=== PATIENT | female | born 1965 | race Caucasian/White ===

== ENCOUNTER 2019-08-18 09:25 | Emergency (ER) | payer OTHER, SELFPAY ==
[2019-08-18 09:53] VITALS: BP 131/81; PULSE 59; RESP 18; TEMP 36.4; O2SAT 95; BMI 25.7
[2019-08-18 09:56] LABS: Bacteria Urine None Seen; RBC Urine None Seen (0-5/HPF); WBC Urine None Seen (0-5/HPF)
[2019-08-18 10:04] LABS: Culture Indicated Urine Cult Not Indicated; Urine Comments Microscopic Normal
[2019-08-18 11:32] VITALS: BP 117/74; PULSE 56; RESP 16; O2SAT 100
--- NOTE | 2019-08-18 11:54 | ED.FEMALEGU ---
HPI - Female Genitourinary <HAKEEM AlexisBC - Last Filed: 08/18/19 14:36> General Chief complaint: Urogenital-Female Stated complaint: Patient said she has a Possible kidney infection Time Seen by Provider: 08/18/19 11:13 Source: patient Mode of arrival: ambulatory Limitations: no limitations History of Present Illness HPI Narrative: The patient is a 54-year-old female nonsmoker with history of breast cancer who presents with a chief complaint of ?I think I have another UTI.She states that she self catheterizes due to neurogenic bladder related to spina bifida. She states that she was put on 3 days of Bactrim for UTI, and felt better on Saturday, but called the walk-in clinic where she was seen after her symptoms returned on Saturday. She started Macrobid per their instructions. She denies possibility of sexually transmitted infections, denies any vaginal bleeding or discharge. She is concerned as her symptoms have returned again, described as diarrhea and flank pain. She states that the pain started several weeks ago on her left flank, but returned on her right flank. She states she is eating and drinking without difficulty. She states that she has temperatures which are low-grade in the 99 range, but states that this is febrile for her. Related Data Allergies Allergy/AdvReac Type Severity Reaction Status Date / Time ciprofloxacin Allergy Verified 08/18/19 09:53 levofloxacin Allergy Verified 08/18/19 09:53 Quinolones Allergy Verified 08/18/19 09:57 Review of Systems <HAKEEM Alexis - Last Filed: 08/18/19 14:36> Review of Systems Narrative: GENERAL: Denies chills, fatigue, malaise, fever, sweats. HEENT: Denies sinus pain, ear pain, sore throat, difficulty swallowing, dizziness. RESPIRATORY: Denies dyspnea, cough, wheezing, hemoptysis, sputum. CARDIOVASCULAR: Denies chest pain, palpitations, orthopnea, edema, GASTROINTESTINAL: See HPI : See HPI MUSCULOSKELETAL: denies weakness, joint pain, or bony pain SKIN: Denies rash, skin lesions, or other NEUROLOGIC: Denies weakness, headache, numbness, change in speech, confusion, seizures, incoordination. PSYCHIATRIC: No concerning psychosocial issues. 12 point review of systems is negative except for those stated above PFSH <FLORA Alexis - Last Filed: 08/18/19 14:36> Medical History (Updated 08/18/19 @ 14:33 by FLORA Alexis) Spina bifida (Acute) Social History Smoking Status: Never smoker Social History Smoking Status: Never smoker Exam <FLROA Alexis - Last Filed: 08/18/19 14:36> Narrative Exam Narrative: GENERAL: This is a well-nourished, well-developed patient, no acute distress HEAD: Atraumatic. Normocephalic. No temporal or scalp tenderness. EYES: Pupils equal round and reactive. Extraocular motions intact. No scleral icterus. No injection or drainage. ENT: Nose without bleeding, purulent drainage or septal hematoma. Throat without erythema, tonsillar hypertrophy or exudate. Uvula midline. Airway patent. NECK: Trachea midline. No JVD or lymphadenopathy. Supple, nontender, no meningeal signs. CARDIOVASCULAR: Regular rate and rhythm without murmurs, gallops, or rubs. RESPIRATORY: Clear to auscultation. Breath sounds equal bilaterally. No wheezes, rales, or rhonchi. No cough. No increased respiratory effort. No accessory muscle use. GASTROINTESTINAL: Abdomen soft, non-tender, nondistended. No hepato-splenomegaly, or palpable masses. No guarding. Active bowel sounds all 4 quadrants. EXTREMITIES: No clubbing, cyanosis, or edema. No joint tenderness, effusion, or edema noted. BACK: Nontender without deformity or crepitance. No CVA tenderness on exam. NEURO: AOx3. SKIN: No rash or erythema. Initial Vital Signs Initial Vital Signs: Vital Signs Temperature 97.5 F L 08/18/19 09:53 Pulse Rate 59 L 08/18/19 09:53 Respiratory Rate 18 08/18/19 09:53 Blood Pressure 131/81 08/18/19 09:53 Pulse Oximetry 95 08/18/19 09:53 <Araceli Barclay DO - Last Filed: 08/18/19 19:10> Initial Vital Signs Initial Vital Signs: Vital Signs Temperature 97.5 F L 09/17/19 09:53 Pulse Rate 59 L 08/18/19 09:53 Respiratory Rate 18 08/18/19 09:53 Blood Pressure 131/81 08/18/19 09:53 Pulse Oximetry 95 08/18/19 09:53 Scores <Araceli FrancoisHAKEEM nava - Last Filed: 08/18/19 14:36> GCS [place] coma scale eye opening: Spontaneous [place] coma scale verbal response: Orientated [place] coma scale motor response: Obey commands Bessy coma scale total score: 15 Course <Araceli ANITA ColonENCOMPASS [facility] - Last Filed: 08/18/19 14:36> Orders Ordered: ED Orders 08/18/19 12:02 Complete Blood Count AUTO DIFF Stat Comprehensive Metabolic Panel Stat Lactate (Lactic Acid) Stat Procalcitonin Stat 08/18/19 12:30 Influenza A and B by PCR Rapid Stat Vital Signs Vital signs: Vital Signs - 8 hr 08/18/19 11:32 Pulse Rate 56 L Respiratory Rate 16 Blood Pressure [Left Arm] 117/74 Pulse Oximetry 100 <Araceli Jesusita Barclay DO - Last Filed: 08/18/19 19:10> Orders Ordered: ED Orders 08/18/19 12:02 Complete Blood Count AUTO DIFF Stat Comprehensive Metabolic Panel Stat Lactate (Lactic Acid) Stat Procalcitonin Stat 08/18/19 12:30 Influenza A and B by PCR Rapid Stat Vital Signs Vital signs: Vital Signs - 8 hr 08/18/19 11:32 Pulse Rate 56 L Respiratory Rate 16 Blood Pressure [Left Arm] 117/74 Pulse Oximetry 100 MDM - Female Genitourinary <[facility]eli [facility] - Last Filed: 08/18/19 14:36> Lab Data Result diagrams: 08/18/19 12:02 08/18/19 12:02 Labs: Lab Results 08/18/19 08/18/19 08/18/19 Range/Units 09:40 12:02 12:02 WBC 4.2 L (4.5-11.0) X10^3/uL RBC 3.63 L (4.0-5.2) X10^6/uL Hgb 12.2 (12.0-16.0) g/dL Hct 35.2 L (36-46) % MCV 97.1 (80-100) fL MCH 33.5 (26-34) PG MCHC 34.5 (30-36) % RDW 12.2 (11.6-14.8) % Plt Count 194 (150-400) X10^3/uL Neut % (Auto) 60.7 (50-75) % Lymph % (Auto) 29.1 (25-40) % [place] % (Auto) 5.6 (3-14) % Eos % (Auto) 3.8 (2-4) % Baso % (Auto) 0.8 (0-2) % Neut # (Auto) 2600 (1943-8651) /uL Lymph # (Auto) 1200 (7236-9858) /uL [place] # (Auto) 200 (0-900) /uL Eos # (Auto) 200 (0-450) /uL Baso # (Auto) 0 (0-100) /uL Sodium (137-145) mmol/L Potassium (3.4-5.1) mmol/L Chloride (98-107) mmol/L Carbon Dioxide (22-32) mmol/L BUN (7-17) mg/dL Creatinine (0.52-1.04) mg/dL Estimated GFR (>60) mL/min BUN/Creatinine Ratio (6-22) Glucose (70-100) mg/dL Lactate (0.7-2.1) mmol/L Calcium (8.4-10.2) mg/dL Total Bilirubin (0.2-1.3) mg/dL AST (14-36) IU/L ALT (9-52) IU/L Alkaline Phosphatase (38-126) U/L Total Protein (6.3-8.2) g/dL Albumin (3.5-5.0) g/dL Globulin (1.7-4.1) g/dL Albumin/Globulin Ratio (1.0-2.8) Procalcitonin < 0.05 (<0.5) ng/mL Urine RBC None seen (0-5/HPF) Urine WBC None seen (0-5/HPF) Urine Bacteria None seen (None) Ur Culture Indicated? Cult not indicated Micro UA Comment Microscopic normal Influenza A & B (PCR) (Negative) 08/18/19 08/18/19 08/18/19 Range/Units 12:02 12:02 12:30 WBC (4.5-11.0) X10^3/uL RBC (4.0-5.2) X10^6/uL Hgb (12.0-16.0) g/dL Hct (36-46) % MCV (80-100) fL MCH (26-34) PG MCHC (30-36) % RDW (11.6-14.8) % Plt Count (150-400) X10^3/uL Neut % (Auto) (50-75) % Lymph % (Auto) (25-40) % [place] % (Auto) (3-14) % Eos % (Auto) (2-4) % Baso % (Auto) (0-2) % Neut # (Auto) (5169-2200) /uL Lymph # (Auto) (0988-3704) /uL [place] # (Auto) (0-900) /uL Eos # (Auto) (0-450) /uL Baso # (Auto) (0-100) /uL Sodium 139 (137-145) mmol/L Potassium 3.8 (3.4-5.1) mmol/L Chloride 101 (98-107) mmol/L Carbon Dioxide 28 (22-32) mmol/L BUN 11 (7-17) mg/dL Creatinine 0.70 (0.52-1.04) mg/dL Estimated GFR > 60.0 (>60) mL/min BUN/Creatinine Ratio 15.7 (6-22) Glucose 87 (70-100) mg/dL Lactate < 0.5 L (0.7-2.1) mmol/L Calcium 9.6 (8.4-10.2) mg/dL Total Bilirubin 0.5 (0.2-1.3) mg/dL AST 44 H (14-36) IU/L ALT 21 (9-52) IU/L Alkaline Phosphatase 68 (38-126) U/L Total Protein 7.9 (6.3-8.2) g/dL Albumin 4.7 (3.5-5.0) g/dL Globulin 3.2 (1.7-4.1) g/dL Albumin/Globulin Ratio 1.5 (1.0-2.8) Procalcitonin (<0.5) ng/mL Urine RBC (0-5/HPF) Urine WBC (0-5/HPF) Urine Bacteria (None) Ur Culture Indicated? Micro UA Comment Influenza A & B (PCR) Negative (Negative) Urine Dip Bedside Urine Glucose Negative Bedside Urine Bilirubin - Negative Bedside Urine Ketone - Negative Urine Specific [place] 1.005 Bedside Urine Occult Blood - Negative Bedside Urine pH 7.5 Bedside Urine Protein - Negative Bedside Urine Urobilinogen - Negative Bedside Urine Nitrite - Negative Bedside Urine Leukocytes +/- 15 Esterase MDM Narrative Medical decision making narrative: The patient is a 54-year-old female who presents with a chief complaint of ?I think I have UTI.'she states that she took 3 days of Bactrim, also took 3 days of Macrobid, and feels like she still has a UTI as she still has some diarrhea and flank pain. However her urine is without signs of infection, with normal micro. I did order a urine culture as well. I did do basic blood work in order to evaluate for other causes. Her lab work came back grossly normal, however the patient elected to leave against medical advice prior to all of her lab work returning. She stated she did not plan on coming to the emergency department today, just thought that she would get any other prescription of Bactrim from the walk-in clinic. She states that she still even take care of her dog. She is hemodynamically stable throughout her stay in the emergency department, afebrile, with no leukocytosis. Her urine is normal on evaluation. I did discuss at length the risk of due to further evaluation and workup pending lab work. Encourage PCP follow-up. Discussed that the patient could come back to the ER if needed. Patient left with GCS 15 ambulated steadily outside the emergency department <Araceli Barclay, DO - Last Filed: 08/18/19 19:10> Lab Data Labs: Lab Results 08/18/19 08/18/19 08/18/19 Range/Units 09:40 12:02 12:02 WBC 4.2 L (4.5-11.0) X10^3/uL RBC 3.63 L (4.0-5.2) X10^6/uL Hgb 12.2 (12.0-16.0) g/dL Hct 35.2 L (36-46) % MCV 97.1 (80-100) fL MCH 33.5 (26-34) PG MCHC 34.5 (30-36) % RDW 12.2 (11.6-14.8) % Plt Count 194 (150-400) X10^3/uL Neut % (Auto) 60.7 (50-75) % Lymph % (Auto) 29.1 (25-40) % [place] % (Auto) 5.6 (3-14) % Eos % (Auto) 3.8 (2-4) % Baso % (Auto) 0.8 (0-2) % Neut # (Auto) 2600 (7284-2265) /uL Lymph # (Auto) 1200 (3520-4155) /uL [place] # (Auto) 200 (0-900) /uL Eos # (Auto) 200 (0-450) /uL Baso # (Auto) 0 (0-100) /uL Sodium (137-145) mmol/L Potassium (3.4-5.1) mmol/L Chloride (98-107) mmol/L Carbon Dioxide (22-32) mmol/L BUN (7-17) mg/dL Creatinine (0.52-1.04) mg/dL Estimated GFR (>60) mL/min BUN/Creatinine Ratio (6-22) Glucose (70-100) mg/dL Lactate (0.7-2.1) mmol/L Calcium (8.4-10.2) mg/dL Total Bilirubin (0.2-1.3) mg/dL AST (14-36) IU/L ALT (9-52) IU/L Alkaline Phosphatase (38-126) U/L Total Protein (6.3-8.2) g/dL Albumin (3.5-5.0) g/dL Globulin (1.7-4.1) g/dL Albumin/Globulin Ratio (1.0-2.8) Procalcitonin < 0.05 (<0.5) ng/mL Urine RBC None seen (0-5/HPF) Urine WBC None seen (0-5/HPF) Urine Bacteria None seen (None) Ur Culture Indicated? Cult not indicated Micro UA Comment Microscopic normal Influenza A & B (PCR) (Negative) 08/18/19 08/18/19 08/18/19 Range/Units 12:02 12:02 12:30 WBC (4.5-11.0) X10^3/uL RBC (4.0-5.2) X10^6/uL Hgb (12.0-16.0) g/dL Hct (36-46) % MCV (80-100) fL MCH (26-34) PG MCHC (30-36) % RDW (11.6-14.8) % Plt Count (150-400) X10^3/uL Neut % (Auto) (50-75) % Lymph % (Auto) (25-40) % [place] % (Auto) (3-14) % Eos % (Auto) (2-4) % Baso % (Auto) (0-2) % Neut # (Auto) (3329-9734) /uL Lymph # (Auto) (4856-2219) /uL [place] # (Auto) (0-900) /uL Eos # (Auto) (0-450) /uL Baso # (Auto) (0-100) /uL Sodium 139 (137-145) mmol/L Potassium 3.8 (3.4-5.1) mmol/L Chloride 101 (98-107) mmol/L Carbon Dioxide 28 (22-32) mmol/L BUN 11 (7-17) mg/dL Creatinine 0.70 (0.52-1.04) mg/dL Estimated GFR > 60.0 (>60) mL/min BUN/Creatinine Ratio 15.7 (6-22) Glucose 87 (70-100) mg/dL Lactate < 0.5 L (0.7-2.1) mmol/L Calcium 9.6 (8.4-10.2) mg/dL Total Bilirubin 0.5 (0.2-1.3) mg/dL AST 44 H (14-36) IU/L ALT 21 (9-52) IU/L Alkaline Phosphatase 68 (38-126) U/L Total Protein 7.9 (6.3-8.2) g/dL Albumin 4.7 (3.5-5.0) g/dL Globulin 3.2 (1.7-4.1) g/dL Albumin/Globulin Ratio 1.5 (1.0-2.8) Procalcitonin (<0.5) ng/mL Urine RBC (0-5/HPF) Urine WBC (0-5/HPF) Urine Bacteria (None) Ur Culture Indicated? Micro UA Comment Influenza A & B (PCR) Negative (Negative) Urine Dip Bedside Urine Glucose Negative Bedside Urine Bilirubin - Negative Bedside Urine Ketone - Negative Urine Specific [place] 1.005 Bedside Urine Occult Blood - Negative Bedside Urine pH 7.5 Bedside Urine Protein - Negative Bedside Urine Urobilinogen - Negative Bedside Urine Nitrite - Negative Bedside Urine Leukocytes +/- 15 Esterase Discharge Plan Departure Patient Disposition: Left Against Medical Advice Clinical Impression: Patient left before treatment completed Discharge Date/Time: 08/18/19 12:52 Stand Alone Forms: Against Medical Advice
[2019-08-18 12:11] LABS: Add Manual Diff / Slide Review NO; Basophils Absolute Auto 0 /uL (0-100); Basophils Percent Auto 0.8 % (0-2); Eosinophils Absolute Auto 200 /uL (0-450); Eosinophils Percent Auto 3.8 % (2-4); Hematocrit 35.2 % (36-46); Hemoglobin 12.2 g/dL (12.0-16.0); Lymphocytes Absolute Auto 1200 /uL (1100-4500); Lymphocytes Percent Auto 29.1 % (25-40); Mean Corpuscular HGB Conc 34.5 % (30-36); Mean Corpuscular Hemoglobin 33.5 PG (26-34); Mean Corpuscular Volume 97.1 fL (80-100); Monocytes Absolute Auto 200 /uL (0-900); Monocytes Percent Auto 5.6 % (3-14); Neutrophils Absolute Auto 2600 /uL (1500-7000); Neutrophils Percent Auto 60.7 % (50-75); Platelet Count 194 X10^3/uL (150-400); Red Blood Cell Count 3.63 X10^6/uL (4.0-5.2); Red Cell Distribution Width 12.2 % (11.6-14.8); White Blood Cell Count 4.2 X10^3/uL (4.5-11.0)
[2019-08-18 12:27] LABS: Alanine Aminotransferase 21 IU/L (9-52); Albumin 4.7 g/dL (3.5-5.0); Albumin Globulin Ratio 1.5 (1.0-2.8); Alkaline Phosphatase 68 U/L (38-126); Aspartate Aminotransferase 44 IU/L (14-36); BUN Creatinine Ratio 15.7 (6-22); Bilirubin Total 0.5 mg/dL (0.2-1.3); Blood Urea Nitrogen 11 mg/dL (7-17); Calcium 9.6 mg/dL (8.4-10.2); Carbon Dioxide 28 mmol/L (22-32); Chloride 101 mmol/L (98-107); Estimated Glomerular Filt Rate > 60.0 mL/min (>60); Globulin 3.2 g/dL (1.7-4.1); Glucose 87 mg/dL (70-100); HEMOLYSIS < 15 (0-50); Lactate (Lactic Acid) < 0.5 mmol/L (0.7-2.1); Potassium 3.8 mmol/L (3.4-5.1); Sodium 139 mmol/L (137-145); Total Protein 7.9 g/dL (6.3-8.2)
[2019-08-18 12:41] LABS: Procalcitonin < 0.05 ng/mL (<0.5)
[2019-08-18 12:50] LABS: Influenza A and B by PCR Rapid Negative (Negative)
== END 2019-08-18 12:52 | disposition left against medical advice (07) ==
PROVIDERS: Emergency Medicine; Emergency Provider Nurse Practitioner Family
DX: R10.9 Unspecified abdominal pain (principal)
CPT/HCPCS: 36415; 80053; 81003; 81015; 83605; 84145; 85025; 87400; 87502; 99282